=== PATIENT | female | born 2000 | race Caucasian/White ===

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

== ENCOUNTER → 2021-02-05 12:16 | Outpatient (CLI) | payer OTHER, SELFPAY ==
[2021-02-07 15:29] LABS: Toxoplasma Gondii IgM < 3.0 AU/mL (0.0-7.9)
[2021-02-10 14:15] LABS: B. henselae IgG Negative titer (Neg:<1:320); B. henselae IgM Negative titer (Neg:<1:100); B. quintana IgG Negative titer (Neg:<1:320)
[2021-02-10 17:00] LABS: B. quintana IgM Negative titer (Neg:<1:100); CMV Acute Antibody IgM < 30.0 AU/mL (0.0-29.9); CMV Antibody IgG < 0.60 U/mL (0.00-0.59); Toxoplasma Gondii IgG < 3.0 IU/mL (0.0-7.1)
== END ==
PROVIDERS: Referring Provider Otolaryngology; Visit Provider Otolaryngology
DX: R59.0 Localized enlarged lymph nodes (principal)
CPT/HCPCS: 36415; 86611; 86644; 86645; 86777; 86778

== ENCOUNTER 2021-02-27 10:19 | Day surgery (SDC) | payer OTHER, SELFPAY ==
--- NOTE | 2021-02-26 08:21 | NURSING ---
PAT phone interview with pt's mother, Tila.
[2021-02-27] VITALS (8 sets, daily range): BP systolic 106–129; BP diastolic 49–74; PULSE 57–81; RESP 16; TEMP 36.1–36.7; O2SAT 99–100; BMI 31.4
--- NOTE | 2021-02-27 | IMM_PTH ---
PATIENT: NICKIE HOUSTON LOC: [facility] [place] U[place][id number] AGE/SX: 20/F ROOM: RE02/27/[address]: Dr. Flako Valadez MD : 2000 BED: DIS: 02/27/2021 SPEC #: [id number] RECD: 03/02/21 13:45 STATUS: DESIRE REQ #: [id number] MIGUELINA: 02/27/21 00:[address]: Flako Valadez DEPT: IMMUNOHISTOCHEMISTRY RECD BY: Marie Warren Tissues: Lymph node, NOS Procedures: BCL-2 (add) BCL-6 (add) CD10 (add) CD138 (add) CD15 (add) CD20 (add) CD23 (add) CD3 (add) CD30 (add) CD43 (add) CD45 (add) CD5 (add) CD79A (add) CYCLIN (add) KAPPA (add) LAMBDA (add) P53 (add) Vimentin (add) MUM1 (add) C-MYC (add) Pankeratin (initial) PHYSICIAN & [address] [address] SPECIMEN INFORMATION: Tissue Source: Left cervical lymph node Clinical Info: Cervical lymphadenopathy Specimen Number: [id number] CPT code: 31226, 04609 x20 METHODOLOGY: Deparaffinized sections of prefer/formalin-fixed tissue or PAP/DQ stained slides are incubated with monoclonal/polyclonal antibodies/oligonucleotide probes. Localization is made via biotin free immunoperoxidase method. Appropriate controls are performed and reacted as expected. Results on target cell population are indicated in the following table: RESULTS: ANTIBODY / CLONE RESULT AE1-3 (AE1/AE3/PCK26) negative CD3 (PS1) positive CD5 (SP10) positive CD10 (56C6) negative CD15 (MMA) negative CD20 (L26) positive CD23 (1B12) negative CD30 (Adeel-H2) negative CD43 (L60) positive CD45 (RP2/18) positive CD79a (11E3) positive CD138 (B-A38) negative BCL-2 (bcl-2/100/D5) negative BCL-6 (XO443W/A8) negative Cyclin D1/BCL-1 (SP4) negative MUM1 (MRQ-43) negative C-MYC (Y69) negative Sumter (polyclonal) negative Lambda (polyclonal) negative Vimentin (V9) negative P53 (DO-7) negative These tests were developed and their performance characteristics determined by [facility]. They may not have been cleared or approved by the U.S. Food and Drug Administration. The FDA has determined that such clearance or approval is not necessary. The above immunohistochemical/dualISH markers are ordered and reviewed by the Pathologist. INTERPRETATION: Left cervical lymph node, lymphadenectomy: Polytypic lymphoid tissue. See comment. AM:radha 03/03/2021 Comment: No evidence of lymphoproliferative disorder. Case has been reviewed in consultation with Dr. Butler who concurs with the above diagnosis. IDC:SJ
[2021-02-27] MEDS: Lactated Ringers 1,000 ML 100 ML IV (10:45)
[2021-02-27 11:04] LABS: Internal QC Validated? YES +Cl - CLEAR BKGD; Pregnancy, Urine Negative Negative
[2021-02-27] MEDS: Lidocaine 1% /Epi 1:100 (20ml) 20 ML Vial (12:58)
--- NOTE | 2021-02-27 13:16 | LYMN_PTH ---
PATIENT: NICKIE HOUSTON LOC: [facility] – [place] U#:[id number] AGE/SX: 20/F ROOM: RE02/27/[address]: Dr. Flako Valadez MD : 2000 BED: DIS: 02/27/2021 SPEC #: [id number] RECD: 02/27/21 13:19 STATUS: DESIRE REID #: [id number] MIGUELINA: 02/27/21 13:[address]: Flako Valadez DEPT: SURGICAL PATHOLOGY RECD BY: Nisa Casas Tissues: LYMPH NODE BIOPSY Procedures: Special Stain Group II Special Stain Group I Surgery Specimen Level IV AFB Stain (control) GMS Stain (control) Imprint (control) HEADER OPERATION: Excision, deep cervical lymph node PRE-OP DIAGNOSIS: Cervical lymphadenopathy TISSUE SUBMITTED: Left cervical lymph node MICROSCOPIC DIAGNOSIS Left cervical lymph node, lymphadenectomy: Reactive lymphoid tissue. Negative for acid-fast bacilli and fungal organisms. See comment. COMMENT The specimen is evaluated at the time of biopsy by Dr. Reyes. Immediate Evaluation = Polytypic lymphoid cells. Immunohistochemistry ([id number]) supports the above diagnosis. AFB and GMS stains with matched controls are negative for micro-organisms. Flow cytometry analysis performed at [facility] reveals no evidence of a B-cell or T-cell lymphoma. The full report is viewable in patient?s EMR. Case has been reviewed in consultation with Dr. Butler who concurs with the above diagnosis. IDC:SJ MICROSCOPIC DESCRIPTION Slides are reviewed. GROSS DESCRIPTION Received fresh for stat examination labeled with the patient's name is a specimen designated left cervical lymph node. The specimen consists of an ovoid fragment of fleshy, pink-bryson soft tissue measuring 2 x 1.5 x 1 cm. Apartment Community Assistant Manager portions are submitted for flow cytometry analysis. Apartment Community Assistant Manager smears are prepared and the status evaluation conveyed to the surgeon intraoperatively. The remainder of the tissue is submitted in its entirety in one cassette. / AM:radha 02/27/21 TC:5 CPT: 28722, 66764, 17377 x2
--- NOTE | 2021-02-27 13:26 | PCM.OPRPT ---
Problems Associated Problem List Diagnoses (1) Cervical adenopathy: Report of Operation Date of Procedure: 02/27/21 Pre-Operative Diagnosis: Left cervical adenopathy Post-Operative Diagnosis: Same Surgery/Procedure Performed:: Biopsy of left deep cervical lymph node Description of Surgical Findings:: Dawson is a 20-year-old female with persistent left cervical lymphadenopathy. Treatment with antibiotic and testing for common viral illnesses was negative for any definitive cause and given its persistence operative treatment for identification and evaluation for possible neoplastic processes was advised and the patient was eager to proceed. The risks, alternatives, potential complications, and benefits were discussed at length and any questions answered to the patient and/or caregiver's satisfaction. Witnessed informed consent was obtained in the office, and the patient and/or caregiver was agreeable to proceed. Procedure went as follows: The patient was identified in preoperative holding and brought to the operating room, placed under general anesthesia and intubated. When appropriate anesthesia was obtained, the left neck was prepped and draped in usual sterile fashion. The planned incision site was then injected with 1% lidocaine with 100,000 epinephrine for a total of 4 mL. After allowing for vasoconstriction, a skin incision 2 fingerbreadths below the angle of the mandible was then created to 15 blade scalpel through the skin subcutaneous tissues and platysma. Dissection was then carried out along the sternocleidomastoid where overlying the vascular sheath was noted to be a large firm lymph node approximately 1.5 x 2.5 cm in size. This was dissected free of the surrounding tissue using bipolar cautery for hemostasis. The node was then sent for pathologic specimen. The wound was then closed deeply with interrupted 3-0 Vicryl sutures closing the space and reapproximating the platysma and subcutaneous tissues. A running 5-0 Monocryl subcuticular stitch was then placed to close the skin followed by Cavilon and Steri-Strips. The patient was then returned to anesthesia, was revived and extubated without complication having tolerated the procedure well. Surgeon: Flako Valadez Type of Anesthesia: General Special Medications: none Specimen's removed: left deep cervical lymph node Drains: none Estimated Blood Loss (mL): 0 mL Fluids Replaced: 600 mL Grafts/Implants Used: none Complications none Admit VTE Documentation VTE Present on Admission: No VTE Mechan Device Prophylaxis: SCD's VTE Pharm Prophylaxis ordered?: No
--- NOTE | 2021-02-27 13:30 | PCM.DC ---
Discharge Instructions Diet Discharge Diet: No restrictions Activity Discharge Activity: Return to Normal Activity May shower in (days): 2 Dressing / Incision Call your doctor if your incision/area has: Continuous Slow Oozing, Increased Pain/ Swelling, Increased Redness and Foul Smelling Discharge Call your doctor if you observe: Fever of 101 or Higher and Uncontrolled pain Suture Line Care: Avoid Pulling/Pushing Cleanse incision/area with: Soap & Water Follow Up Care Please Follow Up With: Flako Valadez MD When: 2 weeks Test Results: Test results from this visit will be discussed in further detail at your follow-up appointment, if applicable. Discharge Plan Admission Attending Provider: Flako Valadez Discharge Orders/Prescriptions Prescriptions: No Action metoclopramide HCl 10 MG tablet 10 mg PO 4X/DAY PRN (Reason: Headache) Qty: 20 RF: 0 Disposition Discharge Orders: Discharge Patient (Routine); Ordered 02/27/21 Ordered By: Dr. Flako Valadez
== END 2021-02-27 15:10 | disposition home or self-care (01) ==
LOC: SDC 10:20 → AC 10:21
PROVIDERS: Anesthesiology; Referring Provider Otolaryngology; Visit Provider Otolaryngology
PROC: (CPT 38500; principal; 2021-02-27 11:45)
DX: R59.0 Localized enlarged lymph nodes (principal)
CPT/HCPCS: 00320; 38510; 81025; 87426; 88305; 88312; 88313; 88341; 88342; C9803; J7120; J2405